=== PATIENT | male | born 1965 | race Caucasian/White ===

== ENCOUNTER 2018-11-18 07:46 | Day surgery (SDC) | payer BC ==
[~2018-11-18] VITALS: Ht 175.3 cm; Wt 87.7 kg
[~2018-11-18 07:46] MED LIST: ACYC200; ACYC400; ACYC5TO15G; ACYC800; AMLO5 PO; HYDACE5 PO; IBUP600 PO; METF500 PO; NAPR500 PO; NAPR550 PO; OXYACE5T PO; Omeprazole20 M1 PO; RXNAPNA550 PO; Robaxin-750750 MG PO; YOHI5.4
== END 2018-11-18 09:50 | disposition home or self-care (01) ==
LOC: ORSCSDS 07:46
PROVIDERS: Internal Medicine Gastroenterology
PROC: 0DBP8ZX Excision of Rectum, Via Natural or Artificial Opening Endoscopic, Diagnostic (ICD-10-PCS; principal; 2018-11-18 09:00)
DX: Z12.11 Encounter for screening for malignant neoplasm of colon (principal); K62.1 Rectal polyp; K57.30 Diverticulosis of large intestine without perforation or abscess without bleeding; Z86.010 Personal history of colon polyps; Z80.0 Family history of malignant neoplasm of digestive organs; F17.220 Nicotine dependence, chewing tobacco, uncomplicated; I10 Essential (primary) hypertension; K21.9 Gastro-esophageal reflux disease without esophagitis; E78.00 Pure hypercholesterolemia, unspecified; R73.9 Hyperglycemia, unspecified; Z79.84 Long term (current) use of oral hypoglycemic drugs; Z79.899 Other long term (current) drug therapy
CPT/HCPCS: 82947; 88305; J0330; J1980; J2001; J2405; J2704; J7120

== ENCOUNTER 2019-06-04 03:19 | Inpatient (IN) | payer BC ==
[~2019-06-04] VITALS: Ht 175.3 cm; Wt 92.0 kg
[2019-06-04 03:58] LABS: BASOPHILS ABSOLUTE AUTO 0.07 K/mm3 (0.00-0.23); BASOPHILS PERCENT AUTO 1 % (0-2); EOSINOPHILS ABSOLUTE AUTO 0.32 K/mm3 (0.00-0.68); EOSINOPHILS PERCENT AUTO 5 % (0-6); Hematocrit 47.8 % (37.0-53.0); Hemoglobin 16.6 g/dL (13.5-17.5); IMMATURE GRAN ABSOLUTE AUTO 0.09 K/mm3 (0.00-0.10); IMMATURE GRAN PERCENT AUTO 1 % (0-1); LYMPHOCYTES ABSOLUTE AUTO 2.64 K/mm3 (0.84-5.20); LYMPHOCYTES PERCENT AUTO 37 % (21-46); MONOCYTES ABSOLUTE AUTO 0.63 K/mm3 (0.16-1.47); MONOCYTES PERCENT AUTO 9 % (4-13); Mean Corpuscular HGB 33.3 pg (26.0-34.0); Mean Corpuscular HGB Conc 34.7 g/dL (31.5-36.5); Mean Corpuscular Volume 96 fL (80-100); Mean Platelet Volume 10.8 fL (9.1-12.4); NEUTROPHILS PERCENT AUTO 48 % (41-73); Platelet Count 173 K/mm3 (150-400); RDW Coefficient Variation 12.7 % (11.7-14.2); RDW Standard Deviation 44.8 fL (35.1-46.3); Red Blood Cell Count 4.98 M/mm3 (4.30-5.90); White Blood Cell Count 7.15 K/mm3 (4.00-11.30)
[2019-06-04 04:16] LABS: Alanine Aminotransfer (ALT/SGP 47 U/L (12-78); Albumin, Blood 3.8 g/dL (3.4-5.0); Albumin/Globulin Ratio 0.8 (0.8-1.8); Alk Phos 93 U/L (50-136); Anion Gap 8 mmol/L (6-16); Aspartate Aminotrans (AST/SGOT 41 U/L (12-37); Bilirubin, Total 0.4 mg/dL (0.1-1.0); Blood Urea Nitrogen 15 mg/dL (8-24); CO2, Blood 26 mmol/L (21-32); Calcium, Blood 9.4 mg/dL (8.5-10.1); Chloride, Blood 102 mmol/L (98-108); Creatinine, Blood 0.65 mg/dL (0.60-1.20); Globulin, Blood 4.8 g/dL (2.2-4.0); Glomerular Filtration Rate >60 (60-); Glucose, Blood 160 mg/dL (70-99); Potassium, Blood 4.5 mmol/L (3.5-5.5); Sodium, Blood 136 mmol/L (136-145); Total Protein, Blood 8.6 g/dL (6.4-8.2)
--- NOTE | 2019-06-04 06:21 | NUR ---
NEW ADMIT TO MED FLOOR ARRIVED TO FLOOR VIA STRETCHER @[phone].
--- NOTE | 2019-06-04 08:00 | NUR ---
PT A/O. STATES PAIN NOT REALLY HELPED FROM PAIN MEDS. STATES IS 8/10 NECK, HEADACHE. WOULD BE OKAY AT 5-6. MED PER EMAR. H/R REG, NO MURMER NOTED. NO TELE. LUNGS CLEAR, RESP EASY, UNLABORED. ON R.A. BT X4 LAST BM TODAY. VOIDS SOME INCONT AT BASELINE. STATES CAN TELL AND WILL CHANGE SELF NEEDS. PT INDEPENDANT IN ROOM. BED IN LOW POSITION, CALL LITE IN REACH, CALLS APPROP/ DAUGHTER IN ROOM
[2019-06-04 12:26] LABS: International Normalized Ratio 0.95; Prothrombin Time Results 10.1 Sec (9.7-11.5)
--- NOTE | 2019-06-04 16:32 | NUR ---
PT ALERT T/O SHIFT. STATES STILL HAS H/A & NECK PAIN. DAUGHTER IN ROOM MUCH OF DAY. MED PER EMAR T/O DAY. LIGHTS STILL OFF T/O DAY. PT TOLD DR HE UPSET WE ARE REDIAGNOSING - STATES HAS HAD FOR 11 YRS. OCC TAKES ACYCLOVIR FOR PAIN FLARE-UPS. NO NEW CONCERNS AT THIS TIME. WE TO HOLD LOVENOX TOMORROW AM. EXPECT SPINAL THURS AM. BED IN LOW POSITION, CALL LITE IN REACH, CALLS APPROP
--- NOTE | 2019-06-04 17:45 | NUR ---
PT UPSET RE LACK OF PAIN CONTROL. FEELS NEEDS BETTER HELP. PT STATES WOULD TAKE 2-4 10 MG OXY AT HOME FOR THIS PAIN. BUT WOULD THINK DILAUDID USUALLY HELPS. CALLED DR THOMPSON. ORDERS FOR DILAUDID 2-4 MG IV Q2P. D/C FENTANYL AND TORADOL. DONE. PT STATES SHOULD BE BETTER AND SAYS [facility]. DONE
--- NOTE | 2019-06-04 19:27 | NUR ---
PT STATES DILAUDID DOING MUCH BETTER. 2 MG GIVEN THEN FOLLOWED WITH 1. PAIN NOW PRETTY GOOD PER PT. STATES NOW AT 6 AMD DUE TO BACK PAIN. WILL NEVER GET BELOW 5. NO OTHER CONCERNS AT THIS TIME . BED IN LOW POSITIOIN, CALL LITE ;IN REACH, CALLS APPROP
[2019-06-05 05:04] LABS: Hematocrit 44.2 % (37.0-53.0); Hemoglobin 15.1 g/dL (13.5-17.5); Mean Corpuscular HGB 33.3 pg (26.0-34.0); Mean Corpuscular HGB Conc 34.2 g/dL (31.5-36.5); Mean Corpuscular Volume 98 fL (80-100); Mean Platelet Volume 10.3 fL (9.1-12.4); Platelet Count 140 K/mm3 (150-400); RDW Coefficient Variation 12.6 % (11.7-14.2); RDW Standard Deviation 45.3 fL (35.1-46.3); Red Blood Cell Count 4.53 M/mm3 (4.30-5.90); White Blood Cell Count 6.04 K/mm3 (4.00-11.30)
[2019-06-05 05:29] LABS: Alanine Aminotransfer (ALT/SGP 38 U/L (12-78); Albumin, Blood 3.2 g/dL (3.4-5.0); Albumin/Globulin Ratio 0.8 (0.8-1.8); Alk Phos 73 U/L (50-136); Anion Gap 6 mmol/L (6-16); Aspartate Aminotrans (AST/SGOT 29 U/L (12-37); Bilirubin, Total 0.3 mg/dL (0.1-1.0); Blood Urea Nitrogen 11 mg/dL (8-24); Bun/Creatinine Ratio 15.3 (12.0-20.0); CO2, Blood 28 mmol/L (21-32); Calcium, Blood 8.4 mg/dL (8.5-10.1); Chloride, Blood 101 mmol/L (98-108); Creatinine, Blood 0.72 mg/dL (0.60-1.20); Globulin, Blood 4.1 g/dL (2.2-4.0); Glomerular Filtration Rate >60 (60-); Glucose, Blood 145 mg/dL (70-99); Sodium, Blood 135 mmol/L (136-145); Total Protein, Blood 7.3 g/dL (6.4-8.2)
--- NOTE | 2019-06-05 05:37 | NUR ---
AVIATION MAINTENANCE TECHNICIAN SUMMARY PT A/O. DID NOT SLEEP WELL THROUGHOUT THE NIGHT. SLEPT OFF AND ON DUE TO PAIN. PRN PAIN MEDS GIVEN FOR HEAD AND NECK PAIN. PT COMPLAINED OF NAUSEA IN THE AM. ZOFRAN GIVEN PER EMAR. FLEXERIL GIVEN TO COVER ADDITIONAL PAIN BUT IT DID NOT SEEM TO WORK. PT STATED HE WAS AT A "HIGH 10" PAIN LEVEL ON A SCALE OF 1-10. ADDITIONAL PRN PAIN WAS GIVEN WITHIN TIME PARAMETER. PT STATED THAT HE STILL FELT NAUSEOUS AFTER ZOFRAN WAS GIVEN AND HE ALSO HAS A LITTLE HEARTBURN THAT HE STATED HE HAS NEVER GOTTEN BEFORE. PT WAS INSTRUCTED TO SIT UP TO ALLIEVIATE HEARTBURN AND SALTINE CRACKERS WERE GIVEN FOR NAUSEA. PT TOOK A SHOWER AND STATED HE "VOMITTED WATER". PT STATED HE DIDNT WANT TO EAT ANYTHING ELSE. WILL CONTINUE TO MONITOR.
[2019-06-05 15:37] LABS: Automated CSF WBC Count 0.002 K/mm3 (0-5)
[2019-06-05 16:54] LABS: RBC Count, CSF 24 /mm3 (0-0); WBC Count, CSF 2 /mm3 (0-5)
[2019-06-05 16:56] LABS: Appearance, CSF Clear (Clear); Color, CSF No Color (No Color)
[2019-06-05 17:26] LABS: Cryptococcus Neoformans/Gattii Not Detected (NOT DETECT); Enterovirus Not Detected (NOT DETECT); Escherichia Coli K1 Not Detected (NOT DETECT); Haemophilus Influenza Not Detected (NOT DETECT); Herpes Simplex Virus 1 Not Detected (NOT DETECT); Herpes Simplex Virus 2 Not Detected (NOT DETECT); Human Herpesvirus 6 Not Detected (NOT DETECT); Human Parechovirus Not Detected (NOT DETECT); Listeria Monocytogenes Not Detected (NOT DETECT); Neisseria Meningitidis Not Detected (NOT DETECT); Streptococcus Agalactiae Not Detected (NOT DETECT); Streptococcus Pneumoniae Not Detected (NOT DETECT); Varicella Zoster Virus Not Detected (NOT DETECT)
--- NOTE | 2019-06-05 17:48 | NUR ---
PT AOX4 AND COOPERATIVE OF CARE. PT HAS HAD NAUSEA AND PAIN TREATING PER EMAR. PT NEEDS MEDICATIONS THEY ARE DUE, SOMETIMES REQUESTING BEFORE HAND. PT EMESIS X2 TODAY AND REPORTED THIS TO DR THOMPSON WHO ADDED A NEW NAUSEA MED. PT DOING WELL WITH THE CHANGE. CALL LIGHT WITHIN REACH WILL CONTINUE TO MONITOR.
[2019-06-05 19:19] LABS: Lymphocytes, CSF 92 % (40-80); Monocytes, CSF 8 % (15-45)
--- NOTE | 2019-06-06 04:35 | NUR ---
SHIFT SUMMARY PT ADMITTED FOR HEADACHE. PT HAS ASEPTIC HSV MENINGITIS. PT HAS SCHEDULED ACYCLOVIR. I HAVE MEDICATED FOR PAIN WITH PRN IV PAIN MEDICATION Q2 HRS THROUGHOUT SHIFT. I MEDICATED FOR NAUSEA ONCE DURING SHIFT. PLAN IS FOR DISCHARGE THIS MORNING ALTHOUGH I AM CONCERNED HOW HIS SEVERE PAIN WILL BE CONTROLLED AT HOME SINCE IT HAS BEEN NECESSARY TO USE IV PRN MEDICATION Q 2 HRS.
--- NOTE | 2019-06-06 19:12 | NUR ---
SHIFT SUMMARY: NO ACUTE CHANGES TO REPORT THIS SHIFT. PT A&O; COOPERATIVE WITH CARE. IRRITABILITY R/T HERPETIC MENINGITIS PAIN; MEDICATED PER EMAR. PT INDEPENDENT IN ROOM. PT REPORTS VOMITING; UNSEEN BY STAFF; PT INSTRUCTED TO SAVE ANY EMESIS; DISCHARGE HELD R/T REPORTED VOMITING. REPORT GIVEN TO ONCOMING RN.
--- NOTE | 2019-06-07 01:26 | NUR ---
Although resting quietly at this time, has been voicing headache pain at intervals - each time he received analgesics as ordered - see MAR for details. Call light in reach. Will continue to monitor.
[2019-06-07] MEDS ORDERED: ACYC400 PO (11:57)
[2019-06-07] MEDS ORDERED: CYCL10 PO (11:58)
[2019-06-07] MEDS ORDERED: OXYC5 PO (11:59)
[2019-06-07] MEDS ORDERED: ONDA4 PO (11:59)
--- NOTE | 2019-06-07 12:26 | NUR ---
PATIENT D/C'D TO HOME WITH FAMILY. RX MEDICATIONS FAXED TO [facility] AND HARD SCRIPT FOR OXYCODONE GIVEN TO PATIENT. D/C INSTRUCTIONS AND EDUCATIONS DISCUSSED WITH PATIENT AND COPY PROVIDED. PATIENT DENIES ANY FURTHER QUESTIONS OR CONCERNS.
[2019-06-09 20:06] LABS: HSV-1 DNA Negative (Negative); HSV-2 DNA Negative (Negative)
== END 2019-06-07 12:20 | disposition home or self-care (01) | DRG 76 ==
LOC: ER 03:19 → MEDS 03:20 → ENPENDDIS 06-07 11:17 → MEDS 06-07 12:20
PROVIDERS: Emergency Medicine; Internal Medicine Endocrinology, Diabetes & Metabolism; ADMIT Internal Medicine
DX: B00.3 Herpesviral meningitis (principal); I10 Essential (primary) hypertension; E11.9 Type 2 diabetes mellitus without complications
CPT/HCPCS: 36415; 62270; 70496; 70498; 77003; 80053; 82945; 83605; 84157; 85025; 85027; 85610; 85730; 87070; 87205; 87483; 89051; 96372; 96374-59; 96375-59; 96376; 99285-25; G0378; J0133; J1170; J1650; J1885; J2405; J2550; J3010; J3480; J7030; J7060; Q9967

== ENCOUNTER → 2019-06-17 | Outpatient (CLI) | payer BC ==
[~2019-06-17] MED LIST changes: +ACYC400 PO; +CYCL10 PO; +ONDA4 PO; +OXYC5 PO
== END | disposition home or self-care (01) ==
LOC: LAB SHORT 12:19 → LAB 12:19
DX: N39.3 Stress incontinence (female) (male) (principal)
CPT/HCPCS: 87086

== ENCOUNTER 2023-03-07 21:08 | Emergency (ER) | payer BC, OTHER ==
[~2023-03-07] VITALS: Ht 175.3 cm; Wt 88.5 kg
[2023-03-07 22:13] LABS: BASOPHILS ABSOLUTE AUTO 0.05 K/mm3 (0.00-0.23); BASOPHILS PERCENT AUTO 1 % (0-2); EOSINOPHILS ABSOLUTE AUTO 0.35 K/mm3 (0.00-0.68); EOSINOPHILS PERCENT AUTO 5 % (0-6); Hematocrit 39.1 % (37.0-53.0); Hemoglobin 13.7 g/dL (13.5-17.5); IMMATURE GRAN ABSOLUTE AUTO 0.04 K/mm3 (0.00-0.10); IMMATURE GRAN PERCENT AUTO 1 % (0-1); LYMPHOCYTES ABSOLUTE AUTO 2.53 K/mm3 (0.84-5.20); LYMPHOCYTES PERCENT AUTO 38 % (21-46); MONOCYTES ABSOLUTE AUTO 0.71 K/mm3 (0.16-1.47); MONOCYTES PERCENT AUTO 11 % (4-13); Mean Corpuscular HGB 32.5 pg (26.0-34.0); Mean Corpuscular Volume 93 fL (80-100); Mean Platelet Volume 10.7 fL (9.1-12.4); NEUTROPHILS ABSOLUTE AUTO 2.98 K/mm3 (1.96-9.15); NEUTROPHILS PERCENT AUTO 45 % (41-73); Platelet Count 176 K/mm3 (150-400); RDW Coefficient Variation 12.7 % (11.7-14.2); RDW Standard Deviation 43.2 fL (35.1-46.3); Red Blood Cell Count 4.21 M/mm3 (4.30-5.90); White Blood Cell Count 6.66 K/mm3 (4.00-11.30)
[2023-03-07 22:55] LABS: Albumin, Blood 3.6 g/dL (3.4-5.0); Bilirubin, Total 0.2 mg/dL (0.1-1.0); Bun/Creatinine Ratio 19.5 (12.0-20.0); Calcium, Blood 8.9 mg/dL (8.5-10.1); Creatinine, Blood 0.87 mg/dL (0.60-1.20); Globulin, Blood 3.5 g/dL (2.2-4.0); Potassium, Blood 3.8 mmol/L (3.5-5.5); Total Protein, Blood 7.1 g/dL (6.4-8.2)
[2023-03-08 01:39] VITALS: BP 141/93
== END 2023-03-08 01:57 | disposition home or self-care (01) ==
LOC: ER 21:08
PROVIDERS: Student in an Organized Health Care Education/Training Program
DX: M54.12 Radiculopathy, cervical region (principal); M25.512 Pain in left shoulder; R20.2 Paresthesia of skin; M79.602 Pain in left arm; Z85.038 Personal history of other malignant neoplasm of large intestine; Z88.2 Allergy status to sulfonamides; Z88.5 Allergy status to narcotic agent
CPT/HCPCS: 71045; 72125; 80053; 84484; 85025; 85379; 93005; 93010; 96374; 96375; 99285-25; A9270; J1885; J3010